=== PATIENT | female | born 1990 | race Caucasian/White ===

== ENCOUNTER 2022-03-02 15:59 | Emergency (ER) | payer OTHER ==
[~2022-03-02] VITALS: Ht 165.1 cm; Wt 86.2 kg
[2022-03-02] MEDS ORDERED: SOLU-MEDROL IM STA (16:18)
--- NOTE | 2022-03-02 16:26 | ER.PDOC ---
General Chief Complaint: Requesting Medical Care Stated Complaint: ASTHMA ATTACK Time seen by MD: 16:20 Source: patient Exam Limitations: no limitations History of Present Illness Initial Comments Asthma attack this afternoon. Patient was wheezing and short of breath. EMS gave her a breathing treatment and by the time she arrived emergency room, she is feeling better and her wheezes resolved. She denies chest pain. Timing/Duration: 1 hour Severity: moderate Associated Symptoms: trouble breathing Prior symptoms/Treatment: Similar symptoms previous Past Medical History Medical History: asthma Surgical History: no surgical history Family History Significant Family History: no pertinent family hx Social History Smoking: non-smoker Alcohol Use: none Drug Use: none Constitutional: no symptoms reported EENTM: no symptoms reported Respiratory: see HPI Cardiovascular: no symptoms reported Gastrointestinal: no symptoms reported All Other Systems: Reviewed and Negative Physical Exam General Appearance: alert, no distress EENT: eyes nml, no nystagmus, ENT nml inspection, pharynx nml Neck: nml inspection, non-tender Respiratory: chest non-tender, lungs clear, normal breath sounds, no respiratory distress, no accessory muscle use Cardiovascular: Normal Peripheral Pulses, Regular Rate, Rhythm, No Edema, No Gallop, No JVD, No Murmur Abdomen: non-tender, no organomegaly Skin: Normal Color, Warm/Dry Extremities: non-tender, nml ROM, no pedal edema NEURO/PSYCH: oriented x 3, CN's nml as tested, motor nml, sensation nml, mood/affect nml Results/Orders Results/Orders Orders - KANDY WAYNE MD Methylprednisolone Sod Succ (Solu-Medrol (03/02/22 16:18) Progress Progress Received Solu-Medrol 125 mg IM. ER DEPARTURE Departure Time of Disposition: 16:44 Disposition: 01 HOME / SELF CARE / HOMELESS Impression: Primary Impression: Asthma exacerbation Condition: Improved Additional Instructions: Prednisone Continue with your Inhaler F/U with your PCP in 2-3 days Return to ED if worsening or concerns Duration or Time Spent with Pa: 10 min Justification of Admit/Observ Is this patient coming directl: Yes *Level of Care/Services Provid: ER Admit Criteria Met: NO Justification Content JUSTIFICATION FOR ADMISSION Instructions 1. Open link in [employer] Browser. [email or web address] 2. Copy and paste data needed to meet the Admit Criteria. 3. Modify and document the needful data to meet the Admit Criteria. Problem Qualifiers Primary Impression: Asthma exacerbation Asthma severity: mild Asthma persistence: intermittent Qualified Codes: J45.21 - Mild intermittent asthma with (acute) exacerbation KANDY WAYNE MD March 02, 2022 16:26
[2022-03-02] MEDS ORDERED: SOLU-MEDROL ONE (16:40)
[2022-03-02 16:47] VITALS: BP 142/73
== END 2022-03-02 16:59 | disposition home or self-care (01) ==
LOC: ER 15:59
DX: J45.21 Mild intermittent asthma with (acute) exacerbation (principal)
CPT/HCPCS: 96372; 99283; J2930